=== PATIENT | female | born 1970 | race Caucasian/White ===

== ENCOUNTER 2020-01-19 05:17 | Inpatient (IN) | payer OTHER ==
[2020-01-18 16:29] VITALS: BMI 24.7
[2020-01-19] MEDS ORDERED: MIDAZOLAM HCL 2 MG/2 ML SINGLE DOSE VIAL ONE ×3 (07:54→08:39)
[2020-01-19] MEDS ORDERED: ROCURONIUM BROMIDE 50 MG/5 ML SYRINGE ONE (08:38)
[2020-01-19] MEDS ORDERED: PROPOFOL 20 ML ONE (08:39)
[2020-01-19] MEDS ORDERED: LIDOCAINE HCL/PF 2% SDV 5ML VIAL ONE (08:40)
[2020-01-19] MEDS ORDERED: DEXAMETHASONE SOD PHOSPHATE 4 MG/1 ML VIAL ONE (09:21)
[2020-01-19] MEDS ORDERED: ceFAZolin SODIUM 1 GM VIAL ONE (09:21)
[2020-01-19] MEDS ORDERED: HYDROmorphone HCl 2 MG/ML VIAL ONE (09:45)
[2020-01-19] MEDS ORDERED: ACETAMINOPHEN INJECTION 100 ML IVPB ONE (10:25)
[2020-01-19] MEDS ORDERED: NEOSTIGMINE METHYLSULFATE 0.5 MG/ML - 10 ML MDV ONE (10:41)
[2020-01-19] MEDS ORDERED: GLYCOPYRROLATE 0.2 MG/1 ML VIAL ONE (10:41)
[2020-01-19] MEDS ORDERED: ONDANSETRON 4 MG/2 ML VIAL IVPUSH PRN (11:19)
[2020-01-19] MEDS ORDERED: IBUPROFEN 800 MG/8 ML IJ IVPB PRN (11:19)
[2020-01-19] MEDS ORDERED: IBUPROFEN 600 MG TABLET (FP) PO PRN (11:19)
[2020-01-19] MEDS ORDERED: BISACODYL 10 MG SUPP.RECT PR PRN (11:26)
[2020-01-19] MEDS ORDERED: ELECTROLYTE-148 SOLN 1,000 ML IV SCH (11:30)
[2020-01-19] MEDS ORDERED: ACETAMINOPHEN 1000 MG/100 ML VIAL (NON FORMULARY) IVPB ONE (11:51)
[2020-01-19] MEDS ORDERED: traMADol HCL 50 MG TABLET PO PRN (11:51)
[2020-01-19 12:13] LABS: HEMATOCRIT 28.8 % (32.4-45.2); MCH 27.5 pg (25.7-33.7); MCHC 31.3 g/dl (32.0-36.0); MEAN CELL VOLUME 87.9 fl (80-96); MEAN PLT VOLUME 8.7 fl (7.5-11.1); PLATELET COUNT 281 K/MM3 (134-434); RBC 3.28 M/mm3 (3.60-5.2); RDW 20.7 % (11.6-15.6); WHITE BLOOD COUNT 13.9 K/mm3 (4.0-10.0)
[2020-01-19 12:29] LABS: POTASSIUM 3.7 mmol/L (3.5-5.1)
[2020-01-19 12:30] LABS: CALCIUM 7.6 mg/dL (8.5-10.1)
[2020-01-19 12:31] LABS: BLOOD UREA NITROGEN 9.8 mg/dL (7-18)
[2020-01-19 12:33] LABS: CREATININE 0.5 mg/dL (0.55-1.3)
[2020-01-19] MEDS ORDERED: HYDROmorphone HCl 2 MG/ML VIAL IVPUSH ONE ×6 (13:11→15:11)
[2020-01-19] MEDS ORDERED: HYDROmorphone HCL CARPU-JECT 2 MG/1 ML DISP.SYRIN IVPUSH ONE (13:47)
[2020-01-19] MEDS ORDERED: ONDANSETRON 4 MG/2 ML VIAL ONE (16:34)
[2020-01-19] MEDS ORDERED: oxyCODONE HCL 5 MG TABLET ONE (16:35)
[2020-01-19] MEDS: ONDANSETRON 4 MG/2 ML VIAL IVPUSH PRN ×2 (16:37→21:47)
[2020-01-19] MEDS: oxyCODONE HCL 5 MG TABLET PO PRN ×2 (16:58→22:37)
[2020-01-19] MEDS: ACETAMINOPHEN 325 MG TABLET (FP) PO SCH ×2 (18:57→18:59)
[2020-01-19] MEDS: CEFAZOLIN 2 GM/D5W 2 GM/50 ML ML IVPB SCH (18:57)
[2020-01-19] MEDS: ELECTROLYTE-148 SOLN 1,000 ML IV SCH (19:30)
[2020-01-19] MEDS: oxyCODONE HCL 10 MG SUSTAINED ACTING TABLET PO SCH (21:33)
[2020-01-19] MEDS: SIMETHICONE 80 MG TAB.CHEW (FP) PO PRN (21:37)
[2020-01-20] MEDS: ACETAMINOPHEN 325 MG TABLET (FP) PO SCH ×6 (00:20→23:04)
[2020-01-20] MEDS ORDERED: ONDANSETRON 4 MG/2 ML VIAL ONE (02:25)
[2020-01-20] MEDS: CEFAZOLIN 2 GM/D5W 2 GM/50 ML ML IVPB SCH (02:31)
[2020-01-20] MEDS ORDERED: PROMETHAZINE HCL 25 MG/1 ML VIAL IVPUSH ONE (02:41)
[2020-01-20] MEDS ORDERED: DEXAMETHASONE SOD PHOSPHATE 4 MG/1 ML VIAL IVPUSH ONE (02:41)
[2020-01-20] MEDS ORDERED: HYDROmorphone HCl 2 MG/ML VIAL IVPB PRN (02:41)
[2020-01-20] MEDS: ELECTROLYTE-148 SOLN 1,000 ML IV SCH ×2 (03:20→19:46)
[2020-01-20 08:40] LABS: BASO % 0.1 % (0-2.0); HEMATOCRIT 33.1 % (32.4-45.2); HEMOGLOBIN 10.8 GM/dL (10.7-15.3); LYMPH % 5.1 % (8-40); MCH 28.2 pg (25.7-33.7); MCHC 32.8 g/dl (32.0-36.0); MEAN CELL VOLUME 86.2 fl (80-96); MEAN PLT VOLUME 8.5 fl (7.5-11.1); MONO % 3.5 % (3.8-10.2); NEUT % 91.3 % (42.8-82.8); PLATELET COUNT 288 K/MM3 (134-434); RBC 3.84 M/mm3 (3.60-5.2); RDW 17.7 % (11.6-15.6)
[2020-01-20 08:52] LABS: POTASSIUM 4.1 mmol/L (3.5-5.1)
[2020-01-20 08:56] LABS: BLOOD UREA NITROGEN 7.6 mg/dL (7-18); CALCIUM 8.5 mg/dL (8.5-10.1)
[2020-01-20 09:00] LABS: CREATININE 0.7 mg/dL (0.55-1.3)
[2020-01-20] MEDS: DOCUSATE SODIUM 100 MG CAPSULE (FP) PO SCH (09:44)
[2020-01-20] MEDS: oxyCODONE HCL 10 MG SUSTAINED ACTING TABLET PO SCH ×2 (09:49→21:59)
[2020-01-20 11:31] LABS: ANISOCYTOSIS 1+; MACROCYTOSIS 0; OVALOCYTE 1+; PLATELET ESTIMATE NORMAL
[2020-01-20] MEDS: ENOXAPARIN NA (PORCINE) 40 MG/0.4 ML DISP.SYRIN SQ SCH (11:40)
[2020-01-20] MEDS: traMADol HCL 50 MG TABLET PO PRN ×3 (15:22→23:04)
[2020-01-20] MEDS: ceFAZolin 2 GRAM PREMIX BAG IVPB SCH (17:55)
[2020-01-20] MEDS: SIMETHICONE 80 MG TAB.CHEW (FP) PO PRN ×2 (19:54→23:03)
[2020-01-21] MEDS: ceFAZolin 2 GRAM PREMIX BAG IVPB SCH ×2 (01:04→09:00)
[2020-01-21] MEDS: ACETAMINOPHEN 325 MG TABLET (FP) PO SCH (05:04)
[2020-01-21] MEDS: traMADol HCL 50 MG TABLET PO PRN (05:05)
[2020-01-21] MEDS: SIMETHICONE 80 MG TAB.CHEW (FP) PO PRN (05:05)
[2020-01-21] MEDS: ENOXAPARIN NA (PORCINE) 40 MG/0.4 ML DISP.SYRIN SQ SCH (08:59)
[2020-01-21] MEDS: oxyCODONE HCL 10 MG SUSTAINED ACTING TABLET PO SCH (09:00)
[2020-01-21] MEDS: DOCUSATE SODIUM 100 MG CAPSULE (FP) PO SCH (09:00)
[2020-01-21 11:21] VITALS: BP 95/72; PULSE 80; TEMP 98
== END 2020-01-21 11:10 | disposition home or self-care (01) | DRG 743 ==
LOC: J2C 05:17 → J3W 18:18
PROVIDERS: ADMIT Obstetrics & Gynecology; ATTEND Obstetrics & Gynecology
PROC: 0DNW0ZZ Release Peritoneum, Open Approach (ICD-10-PCS; 2020-01-19)
PROC: 0UT60ZZ Resection of Left Fallopian Tube, Open Approach (ICD-10-PCS; 2020-01-19)
PROC: 0UT90ZL Resection of Uterus, Supracervical, Open Approach (ICD-10-PCS; principal; 2020-01-19 09:00)
DX: N80.0 Endometriosis of uterus (principal); D64.9 Anemia, unspecified; R10.2 Pelvic and perineal pain; N92.1 Excessive and frequent menstruation with irregular cycle; N80.1 Endometriosis of ovary; D50.9 Iron deficiency anemia, unspecified
CPT/HCPCS: 36415; 36430; 80048; 84703; 85025; 85027; 86850; 86900; 86901; 86922; 88307-TC; 94010; 94760; J0131; P9058